=== PATIENT | female | born 1945 | race Caucasian/White ===

== ENCOUNTER → 2017-03-24 17:11 | Outpatient (CLI) | payer MEDICARE, OTHER | END | disposition home or self-care (01) | LOC: D.MAMMO 14:15 | DX: Z12.31 Encounter for screening mammogram for malignant neoplasm of breast (principal) ==

== ENCOUNTER 2017-08-02 17:19 | Emergency (ER) | payer MEDICARE, OTHER ==
[2017-08-02 18:11] LABS: APPEARANCE CLEAR (CLEAR); COLOR YELLOW (YELLOW)
[2017-08-02 18:12] LABS: BILIRUBIN NEGATIVE (NEGATIVE); GLUCOSE NEGATIVE (NEGATIVE); KETONE NEGATIVE (NEGATIVE); NITRITE NEGATIVE (NEGATIVE); PROTEIN 1+ mg/dL (NEGATIVE); SPECIFIC GRAVITY 1.015 (1.005-1.020); UROBILINOGEN NORMAL (NORMAL)
[2017-08-02 18:17] LABS: BASOPHILS 0.1 % (0-2); EOSINOPHILS 0.1 % (0-7); HEMATOCRIT 37.7 % (36.0-48.0); HEMOGLOBIN 12.3 g/dL (12-16); IMMATURE GRANULOCYTES 0.2 % (0-5); LYMPHOCYTES 5.2 % (15-50); MCH 31.3 pg (26.0-34.0); MCHC 32.6 g/dL (31.0-37.0); MCV 95.9 fL (80.0-100.0); MONOCYTES 5.9 % (2-11); NEUTROPHILS 88.5 % (40-80); PLATELET COUNT 154 10x3/uL (130-400); RBC 3.93 10x6/uL (4.00-5.40); RDW 12.8 % (11.5-14.5); WBC 8.6 10x3/uL (4.8-10.8)
[2017-08-02 18:19] LABS: BACTERIA FEW /hpf (NONE SEEN); EPITHELIAL CELLS OCC /hpf (0-5); RED CELLS - URINE 0-5 /hpf (0-5)
[2017-08-02 18:24] LABS: HYALINE CAST RARE /lpf (NONE SEEN)
[2017-08-02 18:33] LABS: ALBUMIN 3.8 g/dL (3.4-5.0); ANION GAP 13.6 mmol/L (8-16); BILIRUBIN - TOTAL 0.97 mg/dL (0.2-1.3); CARBON DIOXIDE 29.5 mmol/L (21.0-32.0); CREATININE - SERUM 1.7 mg/dL (0.6-1.3); POTASSIUM - SERUM 3.1 mmol/L (3.5-5.1); PROTEIN - SERUM 7.9 g/dL (6.4-8.2)
[2017-08-02 18:43] LABS: THYROID STIMULATING HORMONE 1.47 uIU/mL (0.36-3.74)
== END 2017-08-02 20:05 | disposition home or self-care (01) ==
LOC: D.ER 17:19
PROVIDERS: Family Medicine
DX: N39.0 Urinary tract infection, site not specified (principal); E87.6 Hypokalemia; I12.9 Hypertensive chronic kidney disease with stage 1 through stage 4 chronic kidney disease, or unspecified chronic kidney disease; N18.9 Chronic kidney disease, unspecified; K21.9 Gastro-esophageal reflux disease without esophagitis; J44.9 Chronic obstructive pulmonary disease, unspecified

== ENCOUNTER 2017-08-05 12:44 | Emergency (ER) | payer MEDICARE, OTHER ==
[2017-08-05 14:09] LABS: APPEARANCE SLT CLOUDY (CLEAR); BILIRUBIN NEGATIVE (NEGATIVE); COLOR YELLOW (YELLOW); GLUCOSE NEGATIVE (NEGATIVE); KETONE SMALL mg/dL (NEGATIVE); NITRITE NEGATIVE (NEGATIVE); PROTEIN 1+ mg/dL (NEGATIVE); SPECIFIC GRAVITY 1.015 (1.005-1.020); UROBILINOGEN NORMAL (NORMAL); WHITE CELLS - URINE RARE /hpf (0-5)
[2017-08-05 14:10] LABS: AMORPHOUS SEDIMENT >1+ /lpf (NONE SEEN); BACTERIA MODERATE /hpf (NONE SEEN); EPITHELIAL CELL CAST RARE /lpf (NONE SEEN); GRANULAR CAST 0-5 /lpf (NONE SEEN); MUCUS <1+ /lpf (NONE SEEN); RED CELLS - URINE 0-5 /hpf (0-5)
== END 2017-08-05 15:38 | disposition home or self-care (01) ==
LOC: D.ER 12:44
PROVIDERS: Emergency Medicine
DX: R41.82 Altered mental status, unspecified (principal); R51 Headache; R00.2 Palpitations; R05 Cough; R41.0 Disorientation, unspecified

== ENCOUNTER → 2017-08-14 13:09 | Outpatient (CLI) | payer MEDICARE, OTHER | END | disposition home or self-care (01) | LOC: D.US 13:00 | DX: R42 Dizziness and giddiness (principal) ==

== ENCOUNTER → 2018-05-03 19:48 | Outpatient (CLI) | payer MEDICARE, OTHER | END | disposition home or self-care (01) | LOC: D.LABREF 19:48 | DX: N39.0 Urinary tract infection, site not specified (principal) ==

== ENCOUNTER 2018-07-27 19:26 | Emergency (ER) | payer MEDICARE, OTHER ==
[~2018-07-27] VITALS: Ht 167.6 cm; Wt 90.9 kg
[2018-07-27 19:31] VITALS: Ht 167.6 cm; Wt 90.9 kg
[2018-07-27] MEDS ORDERED: HYDROCHLOROTH12.5 M1 PO (19:33)
[2018-07-27] MEDS ORDERED: AMBIEN10 MG PO (19:33)
[2018-07-27] MEDS ORDERED: LAMICTAL100 MG PO (19:33)
[2018-07-27] MEDS ORDERED: OMEPRAZOLE40 MG PO (19:33)
[2018-07-27] MEDS ORDERED: NORVASC5 MG PO (19:33)
[2018-07-27] MEDS ORDERED: BUPROPION XL300 MG PO (19:34)
[2018-07-27] MEDS ORDERED: PRAVASTATIN SOD10 MG PO (19:34)
[2018-07-27] MEDS ORDERED: BELSOMRA20 MG PO (19:34)
[2018-07-27] MEDS ORDERED: CLARITIN 10 MG10 MG (19:34)
[2018-07-27] MEDS ORDERED: TENORMIN25 MG PO (19:34)
[2018-07-27] MEDS ORDERED: MIRALAX17 GM PO (19:35)
[2018-07-27] MEDS ORDERED: GABAPENTIN100 MG PO (19:35)
[2018-07-27] MEDS ORDERED: ROBAXIN500 MG PO (21:24)
[2018-07-27] MEDS ORDERED: VOLTAREN75 MG PO (21:24)
[2018-07-27 22:31] VITALS: BP 144/62
== END 2018-07-27 22:31 | disposition home or self-care (01) ==
LOC: D.ER 19:26
DX: S69.82XA Other specified injuries of left wrist, hand and finger(s), initial encounter (principal); W18.30XA Fall on same level, unspecified, initial encounter; Y93.89 Activity, other specified; Y92.019 Unspecified place in single-family (private) house as the place of occurrence of the external cause; S02.2XXA Fracture of nasal bones, initial encounter for closed fracture; I10 Essential (primary) hypertension; K21.9 Gastro-esophageal reflux disease without esophagitis

== ENCOUNTER 2021-01-22 09:41 | Day surgery (SDC) | payer MEDICARE, OTHER ==
[~2021-01-22] VITALS: Ht 167.6 cm; Wt 88.6 kg
--- NOTE | ~2021-01-22 | OP ---
PATIENT NAME: CRYSTAL ASH MEDICAL RECORD: [id number] :43 LOCATION:D[facility] ADMISSION DATE: SURGEON: ANA STOKES MD DATE OF OPERATION: 01/22/2021 PREOPERATIVE DIAGNOSIS: Gastric polyposis. POSTOPERATIVE DIAGNOSIS: Gastric polyposis. PROCEDURE: 1. Esophagogastroduodenoscopy with antral biopsies to rule out Helicobacter pylori. 2. Gastric hot biopsy forceps polypectomy x1. 3. Endoscopic ablation of 46 sessile gastric polyps utilizing the argon plasma pet training instructor. SURGEON: Ana Stokes MD AWNING FRAME MAKER: None. BLOOD LOSS: Minimal. ANESTHESIA: IV sedation. COMPLICATIONS: None. The risks, possible complications and alternatives of the procedure were explained to the patient. She elects to proceed. ENDOSCOPIC COURSE: The patient was conveyed to the endoscopy suite electively on 01/22/2021. IV sedation was induced by the anesthesia staff. A bite block was inserted. A gastroscope was inserted into the mouth. It was advanced easily into the hypopharynx. The esophagus was easily intubated as were the stomach and duodenum. Upon withdrawal, retroflexed and angulus views were obtained. Antral biopsies were obtained. The largest and most worrisome of these polyps was in the cardia of the stomach and it appeared adenomatous. This was removed in its entirety utilizing the hot biopsy forceps polypectomy technique. The other smaller polyps, which ranged in size from 3 mm-1.1 cm were successfully ablated utilizing the argon plasma pet training instructor with the stomach setting in a forced mode. I noted no further polyps. The endoscope was then withdrawn under direct vision. I will see the patient in my office in 2 to 3 weeks to discuss the results of the biopsies. I will then return the patient's endoscopic care back over to Dr. Abad. TRANSINT:[id number] Voice Confirmation ID: [id number] DOCUMENT ID: [id number] OPERATIVE REPORT [id number] CRYSTAL ASH ANA STOKES MD CC: ARIADNE ABAD MD and BI BRANHAM DO [id number] DICTATION DATE: 01/22/21 141 CAR TESTER: 01/22/212019 [facility] 01/22/21 [place] [id number]
[~2021-01-22 09:41] MED LIST: AMBIEN10 MG PO; BELSOMRA20 MG PO; BUPROPION XL300 MG PO; CLARITIN 10 MG10 MG; GABAPENTIN100 MG PO; HYDROCHLOROTH12.5 M1 PO; LAMICTAL100 MG PO; MIRALAX17 GM PO; NORVASC5 MG PO; OMEPRAZOLE40 MG PO; PRAVASTATIN SOD10 MG PO; ROBAXIN500 MG PO; TENORMIN25 MG PO; VOLTAREN75 MG PO
[2021-01-22 10:13] LABS: BASOPHILS 0.2 % (0-2); EOSINOPHILS 2.5 % (0-7); HEMATOCRIT 39.8 % (36.0-48.0); HEMOGLOBIN 12.4 g/dL (12-16); IMMATURE GRANULOCYTES 0.3 % (0-5); LYMPHOCYTE ABS# 1.09 10x3/uL (1.18-3.74); LYMPHOCYTES 17.9 % (15-50); MCH 30.5 pg (26.0-34.0); MCHC 31.2 g/dL (31.0-37.0); MCV 97.8 fL (80.0-100.0); MEAN PLATELET VOLUME 9.7 fL (7.4-10.4); MONOCYTES 6.4 % (2-11); NEUTROPHIL ABS# 4.42 10x3/uL (1.56-6.13); NEUTROPHILS 72.7 % (40-80); PLATELET COUNT 175 10x3/uL (130-400); RBC 4.07 10x6/uL (4.00-5.40); RDW 14.1 % (11.5-14.5); WBC 6.1 10x3/uL (4.8-10.8)
[2021-01-22 10:25] LABS: ALBUMIN 3.9 g/dL (3.4-5.0); ANION GAP 12.1 mmol/L (8-16); BILIRUBIN - TOTAL 0.47 mg/dL (0.2-1.3); CALCIUM 9.4 mg/dL (8.5-10.1); CARBON DIOXIDE 30.1 mmol/L (21.0-32.0); CREATININE - SERUM 1.7 mg/dL (0.6-1.3); POTASSIUM - SERUM 4.2 mmol/L (3.5-5.1); PROTEIN - SERUM 7.6 g/dL (6.4-8.2)
[2021-01-22] MEDS ORDERED: LINZESS145 MCG PO (10:38)
[2021-01-22] MEDS ORDERED: PEPCID AC20 MG PO (10:39)
[2021-01-22] MEDS ORDERED: ULTRAM50 MG PO (10:39)
[2021-01-22] MEDS ORDERED: TRAZODONE HCL50 MG PO (10:40)
[2021-01-22] MEDS ORDERED: ZYLOPRIM100 MG PO (10:40)
[2021-01-22] MEDS ORDERED: ZETIA10 MG PO (10:40)
[2021-01-22] MEDS ORDERED: COREG 3.1253.125 MG PO (10:41)
[2021-01-22 10:48] VITALS: BP 151/52; Ht 167.6 cm; Wt 88.6 kg
--- NOTE | 2021-01-22 14:47 | NUR ---
DC INSTRUCTIONS GIVEN TO PT/SPOUSE. STATE UNDERSTANDING. DC'D IV CATH FULLY INTACT.
--- NOTE | 2021-01-22 15:06 | NUR ---
PT LEFT UNIT VIA WC AT 1458
== END 2021-01-22 14:58 | disposition home or self-care (01) ==
LOC: D.OPS 09:41
PROVIDERS: Anesthesiology; ATTEND Surgery
DX: K31.7 Polyp of stomach and duodenum (principal); I10 Essential (primary) hypertension; E03.9 Hypothyroidism, unspecified; N18.4 Chronic kidney disease, stage 4 (severe); F31.9 Bipolar disorder, unspecified